=== PATIENT | female | born 1950 | race Caucasian/White ===

== ENCOUNTER → 2017-09-20 | Outpatient (CLI) | payer OTHER ==
--- NOTE | 2017-09-20 13:41 | KCIC ---
DATE: September 20, 2017 EXAM: MAMMO MAYRA SCREENING BILATERAL HISTORY: Routine Screening COMPARISON: September 14, 2015 TECHNIQUE: Routine digital mammographic views were obtained. This study was interpreted with the benefit of Computerized Aided Detection (CAD). The breast parenchyma shows scattered fibroglandular densities. Breast parenchyma level B. FINDINGS: There is no suspicious findings. IMPRESSION: Negative examination. BI-RADS CATEGORY: 1 NEGATIVE RECOMMENDED FOLLOW-UP: 12M 12 MONTH FOLLOW-UP PQRS compliance statement: Patient information was entered into a reminder system with a target due date for the next mammogram. Mammography is a sensitive method for finding small breast cancers, but it does not detect them all and is not a substitute for careful clinical examination. A negative mammogram does not negate a clinically suspicious finding and should not result in delay in biopsying a clinically suspicious abnormality. "Our facility is accredited by the [employer] Mammography [employer]."
== END | disposition home or self-care (01) ==
LOC: KCIC MAMMO 09:34
PROVIDERS: ATTEND Nurse Practitioner Family
DX: Z12.31 Encounter for screening mammogram for malignant neoplasm of breast (principal)
CPT/HCPCS: 77063; G0202; 77067

== ENCOUNTER → 2018-08-06 | Outpatient (CLI) | payer OTHER ==
--- NOTE | 2018-08-06 12:08 | KCIC ---
Thyroid ultrasound dated 08/06/2018. Comparison made to 02/13/2013. Clinical data indication: Multinodular goiter. FINDINGS: Right lobe thyroid gland measures 5.6 x 1.8 x 1.6 cm. Left lobe measures 5.3 x 1.8 x 1.5 cm. There are multiple small subcentimeter nodules throughout both thyroid lobes. Largest is located inferiorly near the isthmus on the right measuring up to 1.3 cm in size. There is also a solid nodule on the left measuring up to 8 mm in size. Both lobes are somewhat hypervascular. Is compared to the prior exam, the nodule at the right isthmus is similar in size given differences in technique. Previously described cystic foci have decreased. IMPRESSION: Indeterminate bilateral thyroid nodules, most of which measure less than 1 cm in size, overall relatively stable. This could be related to multinodular goiter. Electronically signed by: Yonathan Munguia MD (08/06/2018 12:05 PM) [id number]
== END | disposition home or self-care (01) ==
LOC: KCIC US 10:38
PROVIDERS: ATTEND Nurse Practitioner Family
DX: E04.2 Nontoxic multinodular goiter (principal)
CPT/HCPCS: 76536

== ENCOUNTER → 2018-09-21 | Outpatient (CLI) | payer OTHER, MEDICARE ==
--- NOTE | 2018-09-21 12:29 | KCIC ---
EXAM: Bilateral digital screening mammogram with tomosynthesis. HISTORY: 68-year-old female presents for screening mammography. TECHNIQUE: Full-field digital craniocaudal and mediolateral oblique 2D and 3D tomosynthesis images of both breasts are obtained for evaluation. Computer aided detection with [employer] software version 9.3 was applied. COMPARISON: 09/20/2017 and 09/15/2016 BREAST PARENCHYMAL DENSITY: Level C - Heterogeneously dense. FINDINGS: There is no new suspicious mass, microcalcification or region of architectural distortion. There is stable nodularity within the 6:00 position of the right breast at mid depth. IMPRESSION: BI-RADS Category 2: Benign finding(s). RECOMMENDATION: Annual mammography is recommended. If your mammogram demonstrates that you have dense breast tissue, which could hide abnormalities, and if you have other risk factors for breast cancer that have been identified, you might benefit from supplemental screening tests that may be suggested by your ordering physician. Dense breast tissue, in and of itself, is a relatively common condition. This information is not provided to cause undue concern, but rather to raise your awareness and to promote discussion with your physician regarding the presence of other risk factors, in addition to dense breast tissue. A report of your mammography results will be sent to you and your physician. You should contact your physician if you have any questions or concerns regarding this report. Mammography is a sensitive method for finding small breast cancers, but it does not detect them all and is not a substitute for careful clinical examination. A negative mammogram does not negate a clinically suspicious finding and should not result in delay in biopsying a clinically suspicious abnormality. PQRS compliance statement - Patient information was entered into a reminder system with a target due date for the next mammogram. "Our facility is accredited by the [employer] Mammography [employer]." Electronically signed by: Maribell Lawrence MD (09/21/2018 12:26 PM) [id number]
== END | disposition home or self-care (01) ==
LOC: KCIC MAMMO 11:14
PROVIDERS: ATTEND Nurse Practitioner Family
DX: Z12.31 Encounter for screening mammogram for malignant neoplasm of breast (principal)
CPT/HCPCS: 77063; 77067